=== PATIENT | female | born 1970 | race Caucasian/White ===

== ENCOUNTER 2021-07-16 12:46 | Emergency (ER) | payer MEDICAID, OTHER ==
[~2021-07-16] VITALS: Ht 170.2 cm; Wt 60.3 kg
[~2021-07-16 12:46] MED LIST: [UNRECOGNIZED DRUG - CODE] PO
[2021-07-16 12:48] VITALS: BP 167/92
--- NOTE | 2021-07-16 12:49 | NUR ---
Pt wheelchair assisted from vehicle into triage room
--- NOTE | 2021-07-16 12:53 | NUR ---
Patient wheelchair assisted to lobby with seatbelt intact. Accompanied by spouse in lobby.
[2021-07-16] MEDS ORDERED: ONDANSETRON 4 MG ODT PO ONE (13:35)
--- NOTE | 2021-07-16 13:45 | NUR ---
PT W/C ASSISTED TO BED 9.
[2021-07-16] MEDS ORDERED: NACL 0.9% 1,000 ML IV ONE (13:50)
[2021-07-16] MEDS ORDERED: diphenhydrAMINE 50 MG/ML VIAL IVP ONE (13:50)
[2021-07-16] MEDS ORDERED: KETOROLAC 30 MG/ML VIAL IVP ONE (13:50)
[2021-07-16] MEDS ORDERED: SUMAtriptan succinate 50 MG TAB PO ONE (13:50)
[2021-07-16] MEDS ORDERED: METOCLOPRAMIDE 10 MG/2 ML INJ VIAL IVP ONE (13:50)
--- NOTE | 2021-07-16 13:50 | NUR ---
50 y/o F BIB family found laying on ground in front of vehicle. Patient A&Ox4, wheelchair assisted to bed reports nausea, vomiting x 10 episodes for past 3 days and migraine headache and 10/10 throbbing/constant, non-radiating to frontal head. Pt states medication Imitrex which she ran out of yesterday. Pt provided with emesis bag. Pt reports symptoms worsening since onset. Pt denies abdominal pain, chest pain, dysuria, fever, trauma/injury. States symptoms have occurred in the past. VSS; respirations even/unlabored. Bed locked in lowest position, side rails x 1, call light in reach. Spouse at bedside. PMH: HTN, anxiety Meds: lisinopril, venlafaxine NKA
--- NOTE | 2021-07-16 13:57 | NUR ---
Spouse at bedside
--- NOTE | 2021-07-16 14:05 | NUR ---
UNABLE TO PROVIDE URINE SAMPLE AT THIS TIME.
[2021-07-16] MEDS ORDERED: IMI25 PO (14:41)
[2021-07-16] MEDS ORDERED: BEN50 PO (14:41)
[2021-07-16] MEDS ORDERED: IBUP-2213 PO (14:41)
[2021-07-16] MEDS ORDERED: METO-486 PO (14:41)
[2021-07-16] MEDS ORDERED: VENL37.55 PO (15:02)
[2021-07-16 15:10] VITALS: BP 115/87
--- NOTE | 2021-07-16 15:27 | NUR ---
Patient discharged with v/s stable. Written and verbal after care instructions given and explained of Migraine Headache. Patient alert, oriented and verbalized understanding of instructions. Ambulatory with steady gait. All questions addressed prior to discharge. ID band removed. Patient advised to follow up with PMD. Rx of Benadryl, Ibuprofen, Imitrex, Reglan, Effeor XR given. Patient educated on indication of medication including possible reaction and side effects. Opportunity to ask questions provided and answered.
== END 2021-07-16 15:27 | disposition home or self-care (01) ==
LOC: MED 12:46
DX: G43.001 Migraine without aura, not intractable, with status migrainosus (principal); Z76.0 Encounter for issue of repeat prescription; R11.2 Nausea with vomiting, unspecified; Z79.899 Other long term (current) drug therapy; Z79.1 Long term (current) use of non-steroidal anti-inflammatories (NSAID)
CPT/HCPCS: 96361; 96374; 96375; 99284; J1200; J1885; J2765; J7030; Q0162